=== PATIENT | male | born 1985 | race Caucasian/White ===

== ENCOUNTER 2023-05-17 18:38 | Emergency (ER) | payer SELFPAY ==
[2023-05-17 18:42] VITALS: BP 122/71; PULSE 81; RESP 18; O2SAT 99; BMI 18.7
--- NOTE | 2023-05-17 18:46 | ED_ITS ---
HPI - General Adult General Chief complaint: Headache Stated complaint: Headache, Back Pain, Visual Disturbance Time Seen by Provider: 05/17/23 18:46 Source: patient Mode of arrival: walk-in Limitations: no limitations Related Data Previous Rx's Medication Instructions Recorded ketorolac 10 mg tablet 10 mg PO TID PRN pain #10 tabs 05/17/23 metoclopramide HCl 10 mg tablet 10 mg PO Q6H PRN nausea and 05/17/23 (Reglan) vomiting #12 tabs Allergies Allergy/AdvReac Type Severity Reaction Status Date / Time acetaminophen [From Tylenol] Allergy Mild Verified 05/17/23 18:46 PFSH PFSH Social History Smoking status: Current every day smoker Exam Constitutional Vital Signs, click to edit/add: Last Vital Signs Pulse 74 05/17/23 20:37 Resp 16 05/17/23 20:37 BP 117/76 05/17/23 20:37 Pulse Ox 100 05/17/23 20:37 O2 Del Method Room Air 05/17/23 20:37 Course Vital Signs Vital signs: Vital Signs Pulse Rate 81 05/17/23 18:42 Respiratory Rate 18 05/17/23 18:42 Blood Pressure 122/71 H 05/17/23 18:42 Pulse Oximetry 99 05/17/23 18:42 Oxygen Delivery Method Room Air 05/17/23 18:42 Pulse Rate 74 05/17/23 20:37 Respiratory Rate 16 05/17/23 20:37 Blood Pressure 117/76 05/17/23 20:37 Pulse Oximetry 100 05/17/23 20:37 Oxygen Delivery Method Room Air 05/17/23 20:37 Medical Decision Making [facility] Narrative Medical decision making narrative: CT of the brain, CTA of the head and neck and lumbar spine x-rays with no evidence of acute process. Lab studies are within normal limits as well, vital signs are stable in the Emergency Room and the patient has no focal neuro deficit. He was treated with IV fluids, Toradol, Decadron, Zofran with improveme nt. He is discharged home with headache instructions to return to the Emergency Room if symptoms change or worsen. Medical Records Medical records reviewed: Yes I reviewed the patient's medical records Lab Data Lab results reviewed: Yes I reviewed the patient's lab results Labs: Lab Results 05/17/23 Range/Units 19:08 WBC 8.1 (4.0-11.0) 10^3/uL RBC 6.17 H (4.70-6.10) 10^6/uL Hgb 16.6 (14.0-18.0) g/dL Hct 51.4 (42.0-54.0) % MCV 83.3 (80.0-94.0) fL MCH 26.9 (25.9-34.0) pg MCHC 32.3 (29.9-35.2) g/dL RDW 13.3 (11.0-15.0) % Plt Count 183 (150-450) 10^3/uL MPV 9.9 (9.5-13.5) fL Neut % (Auto) 78.9 H (43.0-75.0) % Lymph % (Auto) 11.8 L (20.5-60.0) % [place] % (Auto) 8.2 (1.7-12.0) % Eos % (Auto) 0.1 L (0.9-7.0) % Baso % (Auto) 0.5 (0.2-2.0) % Neut # (Auto) 6.4 (1.4-6.5) 10^3/uL Lymph # (Auto) 1.0 L (1.2-3.8) 10^3/uL [place] # (Auto) 0.7 (0.3-0.8) 10^3/uL Eos # (Auto) 0.0 (0.0-0.7) 10^3/uL Baso # (Auto) 0.0 (0.0-0.1) 10^3/uL Abs Immat Gran (auto) 0.04 H (0.00-0.03) 10^3/uL Imm/Tot Granulo (auto) 0.5 (0.0-0.5) % ESR 2 (<=15) mm/hr Sodium 135 L (136-145) mmol/L Potassium 3.6 (3.5-5.1) mmol/L Chloride 101 (98-107) mmol/L Carbon Dioxide 21.7 (21.0-32.0) mmol/L Anion Gap 15.9 BUN 9.0 (7.0-18.0) mg/dL Creatinine 0.94 (0.70-1.30) mg/dL Est GFR ( Amer) >60 (>=60) Est GFR (Non-Af Amer) >60 (>=60) BUN/Creatinine Ratio 9.6 Glucose 104 (74-106) mg/dL Calcium 9.0 (8.5-10.1) mg/dL Total Bilirubin 0.5 (0.2-1.0) mg/dL AST 18 (15-37) U/L ALT 13 L (16-63) U/L Alkaline Phosphatase 42 L (46-116) U/L Troponin I High Sens 5.0 (4.0-76.1) pg/mL C-Reactive Protein <0.2 (<=1.0) mg/dL Total Protein 7.4 (6.4-8.2) g/dL Albumin 4.2 (3.4-5.0) g/dL Globulin 3.2 g/dL Albumin/Globulin Ratio 1.3 TSH 0.384 (0.358-3.740) uIU/mL Imaging Data CT scan - head: Attestation: I have reviewed the pertinent imaging results. Radiologist's impression: Procedure: CT head/brain wo con EXAMINATION: CT head/brain wo con, 05/17/2023 7:21 PM EDT HISTORY: Headache, vision loss COMPARISON: None. TECHNIQUE: CT scan of the head was performed without IV contrast. CT dose reduction technique was used, including Automated Exposure Control. FINDINGS: BRAIN PARENCHYMA/CSF SPACES: Ventricles are normal in size for age. There is no hemorrhage, mass effect or midline shift. There are no other significant findings. PARANASAL SINUSES: Minimal right-sided ethmoid sinus mucosal thickening. SKULL BASE AND CALVARIUM: Normal. EXTRACRANIAL SOFT TISSUES: Normal. IMPRESSION: 1. No acute intracranial abnormality. 2. Minimal right-sided ethmoid sinus mucosal thickening. Electronically authenticated by: SAMANTHA SANON Date: 05/17/2023 19:38 Procedure: CT angio head CT angio head, CT angio neck HISTORY: Headache TECHNIQUE: CTA head and neck. Post-processed images {Maximum intensity Projection (MIP), Volume-rendered (VR), or Surface shaded display images (SSD)} were created, reviewed and archived. All CT scans at this facility use dose modulation, iterative reconstruction, and/or weight based dosing when appropriate to reduce radiation dose to as low as reasonably achievable. Contrast: IV administration of 100 cc Omnipaque 350 COMPARISON: None. RESULT: NECK: Soft tissues: Within normal limits. Spine: Alignment is normal. No significant degenerative changes are present. Lungs: The imaged lungs are clear. CT ARTERIOGRAM: EXTRACRANIAL CIRCULATION: Aortic arch and branch vessels: Conventional 3-vessel arch branch anatomy. No significant stenosis in the proximal brachiocephalic vessels. Carotid Stenosis: Right Common: No significant stenosis. Right Internal Carotid Plaque: No significant plaque formation. Right Internal Carotid Stenosis (% by NASCET Criteria): 0% Left Common: No significant stenosis. Left Internal Carotid Plaque: No significant plaque formation. Left Internal Carotid Stenosis (% by NASCET Criteria): 0% Cervical Vertebral Arteries: Patency: Bilateral Dominance: Codominant INTRACRANIAL CIRCULATION: Anterior circulation: Distal ICAs, ACAs and MCAs are normal in caliber. A1 segments are codominant. Posterior circulation: Distal vertebral arteries, basilar trunk and senior engineering technician are normal in caliber. Proximal SCAs, AICAs and PICAs are patent. No vessel cut off, filling defect, significant focal narrowing or evidence of aneurysm. Opacified dural venous sinuses and major deep and superficial draining veins are patent. IMPRESSION: No large vessel occlusion or high-grade stenosis in the head or neck. Electronically authenticated by: EDWIN SILVA Date: 05/17/2023 20:29 XR lumbar spine: Attestation: I have reviewed the pertinent imaging results. Radiologist's impression: Procedure: XR lumbar spine 2-3V EXAMINATION: XR lumbar spine 2-3V HISTORY: Low back pain COMPARISON: No relevant comparison available. FINDINGS: BONES: Normal. No significant spondylosis, scoliosis, fracture, or visible bony lesion. DISC SPACES: Normal. No significant disc height narrowing, subluxation, or endplate abnormality. PARASPINOUS: Negative. No paraspinous abnormality is seen. OTHER: Iodinated contrast bilateral renal collecting systems IMPRESSION: No acute abnormality Electronically authenticated by: LOBO JOSE Date: 05/17/2023 20:26 ECG Data Attestation: I personally reviewed and interpreted this ECG as follows: (normal sinus rhythm at a rate of seventy-two, no acute ST elevation or ectopy. EKG reviewed by attending physician) Discharge Plan Discharge Chief Complaint: Headache Clinical Impression: Headache Patient Disposition: Home, Self-Care Time of Disposition Decision: 20:42 Condition: Good Mode of Transportation: Private Vehicle Prescriptions / Home Meds: New ketorolac 10 mg tablet 10 mg PO TID PRN (Reason: pain) Qty: 10 0RF metoclopramide HCl [Reglan] 10 mg tablet 10 mg PO Q6H PRN (Reason: nausea and vomiting) Qty: 12 0RF Rx Instructions: Can be taken as needed for headache, take with benadryl Instructions: Acute Headache (ED) Stand Alone Forms: Portal Instructions Referrals: Physician,Non-Staff, MD [Primary Care Provider] - 1 week Discharge Date/Time: 05/17/23 20:59
--- NOTE | 2023-05-17 18:54 | ECG_ITS ---
The [facility] Test Date: 2023-05-17 Pat Name: HINA ATKINSON Department: Room: - Gender: Male [employer]: : 1985 Requested By: [id number] Order Number: [id number] Reading MD: ANYI SUAREZ Measurements Intervals [place] Rate: 72 P: 75 CT: 152 QRS: 85 QRSD: 96 T: 63 QT: 390 QTc: 413 Interpretive Statements 1100 Sinus rhythm 9110 normal ECG No previous ECG available for comparison Electronically Signed On 05-18-2023 7:12:57 EDT by ANYI SUAREZ
--- NOTE | 2023-05-17 18:55 | CT_ITS ---
The [address] [address] Patient Name: HINA ATKINSON MRN: [id number] date: 1985 Sex: M Assigned Patient Location: ER Current Patient Location: ER Accession/Order Number: [id number] Exam Date: 05/17/2023 19:21 Report Date: 05/17/2023 19:38 At the request of: DARI SAMANIEGO Procedure: CT head/brain wo con EXAMINATION: CT head/brain wo con, 05/17/2023 7:21 PM EDT HISTORY: Headache, vision loss COMPARISON: None. TECHNIQUE: CT scan of the head was performed without IV contrast. CT dose reduction technique was used, including Automated Exposure Control. FINDINGS: BRAIN PARENCHYMA/CSF SPACES: Ventricles are normal in size for age. There is no hemorrhage, mass effect or midline shift. There are no other significant findings. PARANASAL SINUSES: Minimal right-sided ethmoid sinus mucosal thickening. SKULL BASE AND CALVARIUM: Normal. EXTRACRANIAL SOFT TISSUES: Normal. CT/CT head/brain wo con IMPRESSION: 1. No acute intracranial abnormality. 2. Minimal right-sided ethmoid sinus mucosal thickening. Electronically authenticated by: SAMANTHA SANON Date: 05/17/2023 19:38
[2023-05-17] MEDS: 0.9 % SODIUM CHLORIDE 1,000 ML 999 ML IV (19:12)
[2023-05-17 19:15] LABS: Basophils Percent Auto 0.5 % (0.2-2.0); Eosinophils Percent Auto 0.1 % (0.9-7.0); Hematocrit 51.4 % (42.0-54.0); Hemoglobin 16.6 g/dL (14.0-18.0); Immature Granulocytes Abs Auto 0.04 10^3/uL (0.00-0.03); Immature Granulocytes Pct Auto 0.5 % (0.0-0.5); Lymphocytes Percent Auto 11.8 % (20.5-60.0); Mean Corpuscular HGB Conc 32.3 g/dL (29.9-35.2); Mean Corpuscular Hemoglobin 26.9 pg (25.9-34.0); Mean Corpuscular Volume 83.3 fL (80.0-94.0); Mean Platelet Volume 9.9 fL (9.5-13.5); Monocytes Absolute Auto 0.7 10^3/uL (0.3-0.8); Monocytes Percent Auto 8.2 % (1.7-12.0); Neutrophils Absolute Auto 6.4 10^3/uL (1.4-6.5); Neutrophils Percent Auto 78.9 % (43.0-75.0); Platelet Count 183 10^3/uL (150-450); Red Blood Count 6.17 10^6/uL (4.70-6.10); Red Cell Distribution Width 13.3 % (11.0-15.0); White Blood Count 8.1 10^3/uL (4.0-11.0)
--- NOTE | 2023-05-17 19:25 | CT_ITS ---
The [address] [address] Patient Name: HINA ATKINSON MRN: [id number] date: 1985 Sex: M Assigned Patient Location: ER Current Patient Location: ER Accession/Order Number: [id number] Exam Date: 05/17/2023 19:25 Report Date: 05/17/2023 20:29 At the request of: DARI SAMANIEGO Procedure: CT angio neck CT angio head, CT angio neck HISTORY: Headache TECHNIQUE: CTA head and neck. Post-processed images {Maximum intensity Projection (MIP), Volume-rendered (VR), or Surface shaded display images (SSD)} were created, reviewed and archived. All CT scans at this facility use dose modulation, iterative reconstruction, and/or weight based dosing when appropriate to reduce radiation dose to as low as reasonably achievable. Contrast: IV administration of 100 cc Omnipaque 350 COMPARISON: None. RESULT: NECK: Soft tissues: Within normal limits. Spine: Alignment is normal. No significant degenerative changes are present. Lungs: The imaged lungs are clear. CT ARTERIOGRAM: EXTRACRANIAL CIRCULATION: Aortic arch and branch vessels: Conventional 3-vessel arch branch anatomy. No significant stenosis in the proximal brachiocephalic vessels. Carotid Stenosis: Right Common: No significant stenosis. Right Internal Carotid Plaque: No significant plaque formation. Right Internal Carotid Stenosis (% by NASCET Criteria): 0% Left Common: No significant stenosis. Left Internal Carotid Plaque: No significant plaque formation. Left Internal Carotid Stenosis (% by NASCET Criteria): 0% Cervical Vertebral Arteries: Patency: Bilateral Dominance: Codominant INTRACRANIAL CIRCULATION: Anterior circulation: Distal ICAs, ACAs and MCAs are normal in caliber. A1 segments are codominant. Posterior circulation: Distal vertebral arteries, basilar trunk and manager enrollment are normal in caliber. Proximal SCAs, AICAs and PICAs are patent. No vessel cut off, filling defect, significant focal narrowing or evidence of aneurysm. Opacified dural venous sinuses and major deep and superficial draining veins are patent. CT/CT angio neck IMPRESSION: No large vessel occlusion or high-grade stenosis in the head or neck. Electronically authenticated by: EDWIN SILVA Date: 05/17/2023 20:29
[2023-05-17 19:31] LABS: Erythrocyte Sedimentation Rate 2 mm/hr (<=15)
--- NOTE | 2023-05-17 19:35 | CT_ITS ---
The [address] [address] Patient Name: HINA ATKINSON MRN: [id number] date: 1985 Sex: M Assigned Patient Location: ER Current Patient Location: ER Accession/Order Number: [id number] Exam Date: 05/17/2023 19:25 Report Date: 05/17/2023 20:29 At the request of: DARI SAMANIEGO Procedure: CT angio head CT angio head, CT angio neck HISTORY: Headache TECHNIQUE: CTA head and neck. Post-processed images {Maximum intensity Projection (MIP), Volume-rendered (VR), or Surface shaded display images (SSD)} were created, reviewed and archived. All CT scans at this facility use dose modulation, iterative reconstruction, and/or weight based dosing when appropriate to reduce radiation dose to as low as reasonably achievable. Contrast: IV administration of 100 cc Omnipaque 350 COMPARISON: None. RESULT: NECK: Soft tissues: Within normal limits. Spine: Alignment is normal. No significant degenerative changes are present. Lungs: The imaged lungs are clear. CT ARTERIOGRAM: EXTRACRANIAL CIRCULATION: Aortic arch and branch vessels: Conventional 3-vessel arch branch anatomy. No significant stenosis in the proximal brachiocephalic vessels. Carotid Stenosis: Right Common: No significant stenosis. Right Internal Carotid Plaque: No significant plaque formation. Right Internal Carotid Stenosis (% by NASCET Criteria): 0% Left Common: No significant stenosis. Left Internal Carotid Plaque: No significant plaque formation. Left Internal Carotid Stenosis (% by NASCET Criteria): 0% Cervical Vertebral Arteries: Patency: Bilateral Dominance: Codominant INTRACRANIAL CIRCULATION: Anterior circulation: Distal ICAs, ACAs and MCAs are normal in caliber. A1 segments are codominant. Posterior circulation: Distal vertebral arteries, basilar trunk and pediatric urologist are normal in caliber. Proximal SCAs, AICAs and PICAs are patent. No vessel cut off, filling defect, significant focal narrowing or evidence of aneurysm. Opacified dural venous sinuses and major deep and superficial draining veins are patent. CT/CT angio head IMPRESSION: No large vessel occlusion or high-grade stenosis in the head or neck. Electronically authenticated by: EDWIN SILVA Date: 05/17/2023 20:29
[2023-05-17 19:36] LABS: Anion Gap 15.9
[2023-05-17 19:45] LABS: Alanine Aminotransferase 13 U/L (16-63); Albumin Globulin Ratio 1.3; Albumin Level 4.2 g/dL (3.4-5.0); Alkaline Phosphatase 42 U/L (46-116); Aspartate Amino Transferase 18 U/L (15-37); BUN Creatinine Ratio 9.6; Bilirubin Total 0.5 mg/dL (0.2-1.0); Carbon Dioxide 21.7 mmol/L (21.0-32.0); Chloride 101 mmol/L (98-107); Estimated GFR (African America >60 (>=60); Estimated GFR (Non-African Ame >60 (>=60); Globulin 3.2 g/dL; Glucose 104 mg/dL (74-106); Potassium 3.6 mmol/L (3.5-5.1); Sodium 135 mmol/L (136-145); Thyroid Stimulating Hormone 0.384 uIU/mL (0.358-3.740); Total Protein 7.4 g/dL (6.4-8.2)
[2023-05-17 19:46] LABS: C Reactive Protein <0.2 mg/dL (<=1.0)
--- NOTE | 2023-05-17 20:02 | XR_ITS ---
The [address] [address] Patient Name: HINA ATKINSON MRN: [id number] date: 1985 Sex: M Assigned Patient Location: ER Current Patient Location: ER Accession/Order Number: [id number] Exam Date: 05/17/2023 19:55 Report Date: 05/17/2023 20:26 At the request of: DARI SAMANIEGO Procedure: XR lumbar spine 2-3V EXAMINATION: XR lumbar spine 2-3V HISTORY: Low back pain COMPARISON: No relevant comparison available. FINDINGS: BONES: Normal. No significant spondylosis, scoliosis, fracture, or visible bony lesion. DISC SPACES: Normal. No significant disc height narrowing, subluxation, or endplate abnormality. PARASPINOUS: Negative. No paraspinous abnormality is seen. OTHER: Iodinated contrast bilateral renal collecting systems XR/XR lumbar spine 2-3V IMPRESSION: No acute abnormality Electronically authenticated by: LOBO JOSE Date: 05/17/2023 20:26
[2023-05-17 20:21] VITALS: BP 115/74; PULSE 78; RESP 18; O2SAT 98
[2023-05-17] MEDS: ONDANSETRON PF 4 MG/2 ML VIAL IV (20:28)
[2023-05-17] MEDS: DEXAMETHASONE SODIUM PHOSPHATE 10 MG/ML VIAL IV (20:28)
[2023-05-17 20:37] VITALS: BP 117/76; PULSE 74; RESP 16; O2SAT 100
== END 2023-05-17 20:59 | disposition home or self-care (01) ==
PROVIDERS: Physician Assistant; Emergency Provider Emergency Medicine
DX: R51.9 Headache, unspecified (principal); F17.210 Nicotine dependence, cigarettes, uncomplicated
CPT/HCPCS: 36415; 70450; 70496; 70498; 72100; 80053; 84443; 84484; 85025; 85652; 86140; 93005; 96374; 96375; 99285; J1100; Q9967

== ENCOUNTER 2025-06-28 17:01 | Emergency (ER) | payer SELFPAY ==
[2025-06-28] VITALS (24 sets, daily range): BP systolic 108–134; BP diastolic 70–84; PULSE 63–99; TEMP 36.6; O2SAT 98; BMI 18.1
--- NOTE | 2025-06-28 17:26 | ECG_ITS ---
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
[2025-06-28] MEDS: DIAZEPAM 10 MG/2 ML SYRINGE 5 MG IV (17:47)
[2025-06-28] MEDS: MULTIVIT INFUSN,ADULT 4,VIT K 10 ML in 0.9 % SODIUM CHLORIDE 1,000 ML 125 ML IV (17:47)
[2025-06-28 18:07] LABS: Hematocrit 45.5 % (42.0-54.0); Hemoglobin 15.5 g/dL (14.0-18.0); Immature Granulocytes Abs Auto 0.02 10^3/uL (0.00-0.03); Immature Granulocytes Pct Auto 0.3 % (0.0-0.5); Lymphocytes Absolute Auto 2.8 10^3/uL (1.2-3.8); Mean Corpuscular HGB Conc 34.1 g/dL (29.9-35.2); Mean Corpuscular Hemoglobin 29.1 pg (25.9-34.0); Mean Corpuscular Volume 85.4 fL (80.0-94.0); Platelet Count 230 10^3/uL (150-450); Red Blood Count 5.33 10^6/uL (4.70-6.10); White Blood Count 7.5 10^3/uL (4.0-11.0)
[2025-06-28 18:21] LABS: Alanine Aminotransferase 28 U/L (16-63); Albumin Globulin Ratio 1.2; Albumin Level 4.6 g/dL (3.4-5.0); Alkaline Phosphatase 48 U/L (46-116); Anion Gap 16.3; Aspartate Amino Transferase 23 U/L (15-37); Blood Urea Nitrogen 7.0 mg/dL (7.0-18.0); Calcium 9.8 mg/dL (8.5-10.1); Carbon Dioxide 23.3 mmol/L (21.0-32.0); Chloride 104 mmol/L (98-107); Estimated GFR (African America >60 (>=60 mL/min/1.73m^2); Estimated GFR (Non-African Ame >60 (>=60 mL/min/1.73m^2); Globulin 3.7 g/dL; Glucose 104 mg/dL (74-106); Magnesium 2.0 mg/dL (1.8-2.4); Potassium 3.6 mmol/L (3.5-5.1); Sodium 140 mmol/L (136-145); Total Protein 8.3 g/dL (6.4-8.2)
[2025-06-28] MEDS: 0.9 % SODIUM CHLORIDE 1,000 ML 1000 ML IV (18:25)
[2025-06-28 19:12] LABS: Glucose Urine UA NEGATIVE (NEGATIVE)
[2025-06-28 19:20] LABS: Cannabinoid Screen Urine NEGATIVE (NEGATIVE); Cast Seen? NONE SEEN #/LPF (NONE SEEN); Crystals Seen? None Seen #/HPF (None Seen); Methamphetamines Screen Urine NEGATIVE (NEGATIVE); Tricyclic Antidepressant Urine NEGATIVE (NEGATIVE); Urine Culture Indicated NO
--- NOTE | 2025-06-28 21:01 | PC.NURSE ---
updated pt on plan of care, he states he is feeling better and would like to go home, Andrey FINK notified
== END 2025-06-28 21:35 | disposition home or self-care (01) ==
PROVIDERS: Physician Assistant; Emergency Provider Student in an Organized Health Care Education/Training Program
DX: F10.130 Alcohol abuse with withdrawal, uncomplicated (principal); R45.1 Restlessness and agitation; R61 Generalized hyperhidrosis; G47.00 Insomnia, unspecified
CPT/HCPCS: 36415; 80053; 80307; 80320; 81001; 83735; 85025; 93005; 96374; 96375; 99284; J3360